=== PATIENT | female | born 1985 | race African-American/Black ===

== ENCOUNTER 2021-06-26 14:37 | Emergency (ER) | payer OTHER ==
[~2021-06-26] VITALS: Ht 177.8 cm; Wt 70.0 kg
[2021-06-26] MEDS ORDERED: IBUPROFEN 600MG TABLET PO ONE (16:15)
[2021-06-26] MEDS ORDERED: BACITRACIN ZINC OINT UDPKT TOP ONE (16:15)
[2021-06-26] MEDS ORDERED: SULF1TAB48 PO (16:24)
[2021-06-26] MEDS ORDERED: CEPH500C2 PO (16:24)
[2021-06-26] MEDS ORDERED: IBUP-2029 PO (16:24)
[2021-06-26] MEDS ORDERED: TETANUS, DIPHTHERIA, PERTUSSIS VAC/PF 0.5ML (>10YR OLD) IM ONE (16:30)
[2021-06-26 16:55] VITALS: BP 116/73
== END 2021-06-26 16:59 | disposition home or self-care (01) ==
LOC: ER 14:37
DX: L03.115 Cellulitis of right lower limb (principal)
CPT/HCPCS: 90471; 90715; 99283